=== PATIENT | male | born 2000 | race Caucasian/White ===

== ENCOUNTER 2021-12-13 17:42 | Emergency (ER) | payer OTHER, SELFPAY ==
[2021-12-13 18:06] VITALS: PULSE 115; RESP 18; O2SAT 97; BMI 25.0
[2021-12-13 18:30] VITALS: BP 158/90; PULSE 115; RESP 18; TEMP 36.7; O2SAT 97; BMI 25.0
[2021-12-13 19:32] VITALS: BP 130/69; PULSE 82; RESP 18; TEMP 36.7; O2SAT 100; BMI 25.0
--- NOTE | 2021-12-13 19:34 | XR_ITS ---
PROCEDURE INFORMATION: Exam: XR Chest Exam date and time: 12/13/2021 8:13 PM Age: 21 years old Clinical indication: Injury or trauma; Other: Fall off horse; Blunt trauma (contusions or hematomas); Additional info: Accident, fell off horse TECHNIQUE: Imaging protocol: Radiologic exam of the chest. Views: 2 views. COMPARISON: No relevant prior studies available. FINDINGS: Lungs: No consolidation. Pleural spaces: No pneumothorax. Heart/Mediastinum: No cardiomegaly. Bones/joints: No acute fracture. IMPRESSION: No acute findings.
--- NOTE | 2021-12-13 19:34 | XR_ITS ---
PROCEDURE INFORMATION: Exam: XR Left Hip Exam date and time: 12/13/2021 8:15 PM Age: 21 years old Clinical indication: Injury or trauma; Other: Fell off horse; Blunt trauma (contusions or hematomas); Left; Hip; Additional info: Accident, fell off horse TECHNIQUE: Imaging protocol: Radiologic exam of the Left hip. Views: 2 or 3 views hip with pelvis when performed. COMPARISON: CT ABDOMEN PELVIS W CON 12/13/2021 8:12 PM FINDINGS: Bones/joints: Comminuted appearing fracture of the left iliac wing. Soft tissues: Unremarkable. IMPRESSION: Comminuted appearing fracture of the left iliac wing.
--- NOTE | 2021-12-13 20:08 | CT_ITS ---
PROCEDURE INFORMATION: Exam: CT Abdomen And Pelvis With Contrast Exam date and time: 12/13/2021 8:12 PM Age: 21 years old Clinical indication: Injury or trauma; Fall; Blunt; Luq; Additional info: Abd pain TECHNIQUE: Imaging protocol: Computed tomography of the abdomen and pelvis with contrast. Radiation optimization: All CT scans at this facility use at least one of these dose optimization techniques: automated exposure control; mA and/or kV adjustment per patient size (includes targeted exams where dose is matched to clinical indication); or iterative reconstruction. Contrast material: ISOVUE; Contrast volume: 75 ml; Contrast route: IV; COMPARISON: No relevant prior studies available. FINDINGS: Liver: Normal. No mass. Gallbladder and bile ducts: No calcified stones. No ductal dilation. Pancreas: Normal enhancement. No ductal dilation. Spleen: No splenomegaly. Adrenal glands: No mass. Kidneys and ureters: No hydronephrosis. Stomach and bowel: No obstruction. No mucosal thickening. Appendix: No evidence of appendicitis. Intraperitoneal space: No free air. No significant fluid collection. Vasculature: No abdominal aortic aneurysm. Lymph nodes: No enlarged lymph nodes. Urinary bladder: No acute abnormality. Reproductive: No acute abnormality. Bones/joints: Mildly comminuted and displaced fracture of the posterior margin of the left iliac wing with up to 7 mm of cortical step-off. Soft tissues: Gas adjacent to the left iliac fracture extending into the soft tissues surrounding the obliques and transverse abdominus, iliopsoas, and gluteals. IMPRESSION: Mildly comminuted and displaced fracture of the posterior margin of the left iliac wing.
--- NOTE | 2021-12-13 20:16 | [facility].EDFALL ---
ED Disposition Clinical Impression: Pelvic fracture Qualifiers: Encounter type: initial encounter Pelvic bone location: other part of pelvis Fracture type: open Qualified Code(s): S32.89XB - Fracture of other parts of pelvis, initial encounter for open fracture Laceration of flank Qualifiers: Encounter type: initial encounter Qualified Code(s): S31.119A - Laceration without foreign body of abdominal wall, unspecified quadrant without penetration into peritoneal cavity, initial encounter Disposition: Xfer Short-Term Hosp Condition on Discharge: Good Instructions: DI for Laceration Repair Referrals: Provider,Referral, MD [Primary Care Provider] - - Critical Care Critical Care Time: No Attestation: On 12/13/21, the high probability of a clinically significant, sudden or life threatening deterioration of the following system(s) required my full and direct attention, intervention and personal management. The time I documented below is in addition to time spent performing reported procedures but includes the following listed in this critical care notation. Medical Decision Making - Medical Records Medical records reviewed: Yes: I reviewed the patient's medical records. - Avery Inquiry Pt receiving controlled substance: No Vital Signs: 12/13/21 18:06 12/13/21 18:30 12/13/21 19:32 Temperature 98.0 F 98.0 F Temperature Source Oral Oral Pulse Rate [Left Radial] 115 H 115 H 82 Respiratory Rate 18 18 18 Blood Pressure [Left Arm] 158/90 H 130/69 Blood Pressure Mean [Left Arm] 112 89 Blood Pressure Source [Left Arm] Automatic Cuff Blood Pressure Position [Left Arm] Sitting 02 Sat by Pulse Oximetry 97 97 100 Oxygen Delivery Method Room Air Room Air Orders (Tests/Meds): ED MEDICATIONS Discontinued Medications Generic Name Dose Route Start Last Admin Trade Name Freq PRN Reason Stop Dose Admin Iopamidol 75 ml 12/13/21 20:37 12/13/21 20:38 Iopamidol-370 (76%);100ml Bottle IV 12/13/21 20:38 75 ml ONCE ONE Administration Sodium Chloride 40 ml 12/13/21 20:37 12/13/21 20:38 0.9 % Sodium Chloride 50 Ml Vial IV 12/13/21 20:38 40 ml ONCE ONE Administration Sodium Chloride 10 ml 12/13/21 20:37 12/13/21 20:38 Sodium Chloride 0.9% 10ml Syr (Rad Only) IV 12/13/21 20:38 10 ml ONCE ONE Administration Tetanus/Reduced Diphtheria/Acell Pertussis 0.5 ml 12/13/21 18:48 12/13/21 18:53 Tet/Diphth/Pert-Adult 0.5ml Syringe IM 12/13/21 18:49 0.5 ml .ONCE ONE Administration - Radiology Data #1 Image(s): Chest, Pelvis Image Reviewed: Yes I have reviewed radiologist's interpretation Preliminary Findings: Abnormal (see report ) - CT Data CT Scan: Abdomen, Pelvis Time Received: 21:[address] Reviewed: Yes: I have viewed the radiologist's interpretation Preliminary Findings: Abnormal (see report ) - Physician Consults Physician Consulted: sunny Reason -: Transfer to another facilty Medical Decision Narrative: pt with pelvic fx with lac flank and air tracking to fx area - will need uk eval tonight - stable and wishes to private car Fall HPI - General Chief Complaint: Wound/Laceration Stated Complaint: AO 12/13/21 1725 Left side waist line area Time Seen by Provider: 12/13/21 20:16 Mode of Arrival: Ambulatory Source of Information: Patient, Medical Record Limitations: No Limitations Description of Symptoms (Recalled from ER Triage Doc. 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 PUNCTURE WOUND NOTED TO LEFT SIDE. DENIES LOC OR ANY OTHER INJURIES. - History of Present Illness HPI Narrative: fell off horse with lt flank pain and 2 cm lac lt lower abd - no neck pain and no loc - MD complaint: fall Onset (ago): hour(s) Fall from: other (horse ) Fall witnessed: no Place fall occurred: home Loss of consciousness: none Prolonged down time: no Location of injury: abdomen Severity: moderate Associated sym
[2021-12-13 21:34] VITALS: BP 130/69; PULSE 82; RESP 18; TEMP 36.7; O2SAT 100
== END 2021-12-13 21:41 | disposition short-term general hospital (02) ==
LOC: UTC 18:12 → ER 19:23
PROVIDERS: Emergency Provider Emergency Medicine
DX: S32.89XA Fracture of other parts of pelvis, initial encounter for closed fracture (principal); S31.119A Laceration without foreign body of abdominal wall, unspecified quadrant without penetration into peritoneal cavity, initial encounter; V80.010A Animal-rider injured by fall from or being thrown from horse in noncollision accident, initial encounter
CPT/HCPCS: 12001; 71046; 73502; 74177; 90471; 90715; 99285; Q9967